=== PATIENT | female | born 1950 | race Caucasian/White ===

== ENCOUNTER 2018-08-30 14:19 | Emergency (ER) | payer MEDICARE, MEDICAID ==
[~2018-08-30] VITALS: Ht 170.2 cm; Wt 76.4 kg
[~2018-08-30 14:19] MED LIST: AMLO-147; ATOR80TA18; BACL10TA; CLON-379; CRAN307T; DOCU-144; ESOM40SU; HPN; HYDR-1666; KEP100S; LEVE750T70; MULT1CAP57; TRAM50TA; WARF1TAB; [UNRECOGNIZED DRUG - CODE]
[2018-08-30 14:29] VITALS: Ht 170.2 cm; Wt 76.4 kg
[2018-08-30] MEDS ORDERED: morphine 4 MG/ML VIAL IV STA (14:30)
[2018-08-30] MEDS ORDERED: ONDANSETRON 4 MG INJ IV STA (14:30)
[2018-08-30] MEDS ORDERED: SOD CHLORIDE 0.9% 1,000 ML IV STA (14:30)
[2018-08-30] MEDS ORDERED: PHEN-538 PO (16:32)
[2018-08-30] MEDS ORDERED: NITR-58 PO (16:32)
--- NOTE | 2018-08-30 16:57 | ERD ---
ER Documentation Chief Complaint Chief Complaint Diffuse central AP, N/V/D X 2 days, Hx CVA w/ L-sided weakness X 10 yrs HPI Patient is a 68-year-old female with atrial fibrillation, stroke, hypertension who presents with abdominal pain. She has had abdominal pain for the past 2 weeks. She has diarrhea as well. She the diarrhea started 2 days ago. She has mild nausea but no vomiting. She was brought in by ambulance. Upon review of old medical records this is the patient's third visit since 2008. ROS All systems reviewed and are negative except as per history of present illness. Medications Home Meds Active Scripts Phenazopyridine Hcl* (Pyridium*) 200 Mg Tab, 200 MG PO TID PRN for URINARY PAIN, #6 TAB Prov:UMBERTO LOPEZ MD 08/30/18 Nitrofurantoin Monohyd Macrocr* (Macrobid*) 100 Mg Capsr, 100 MG PO BID for 7 Days, CAP Prov:UMBERTO LOPEZ MD 08/30/18 Reported Medications Clonidine Hcl* (Clonidine Hcl*) 0.1 Mg Tab 09/13/10 Tramadol Hcl* (Ultram*) 50 Mg Tablet 09/13/10 Esomeprazole Mag Trihydrate (Nexium Packet) 40 Mg/Packet Suspdr.pkt 09/13/10 Multivitamins W-Minerals (Multivitamin) 1 Cap Capsule 09/13/10 Levetiracetam* (Keppra*) 750 Mg Tablet 09/13/10 Docusate Sodium* (Colace*) 100 Mg Capsule 09/13/10 Atorvastatin (Lipitor) 80 Mg Tablet 09/13/10 Hydrocodone Bit/Acetaminophen (Vicodin 5/500 Tablet) 1 Tab Tablet 12/12/09 Warfarin Sodium* (Coumadin*) 1 Mg Tablet 12/12/09 Tramadol Hcl* (Ultram*) 50 Mg Tablet 12/12/09 Multivitamins W-Minerals (Multivitamin) 1 Cap Capsule 12/12/09 Docusate Sodium* (Colace*) 100 Mg Capsule 12/12/09 Atorvastatin (Lipitor) 80 Mg Tablet 12/12/09 Amlodipine Besylate* (Amlodipine Besylate*) 10 Mg Tablet 12/12/09 Baclofen* (Baclofen*) 10 Mg Tablet 12/12/09 Cranberry Fruit (Cranberry) 307 Mg Tablet 12/12/09 Levetiracetam* (Keppra* (Ped)) 100 Mg/Ml Liq 12/12/09 Pollen Extracts (Prostat) 1 Tab Tablet 12/12/09 [Hpn] No Conflict Check 12/12/09 Allergies Allergies: Coded Allergies: Penicillins (Verified Allergy, Mild, 09/13/10) Sulfa (Sulfonamides) (Verified Allergy, Mild, 09/13/10) Uncoded Allergies: [id number] (SULFA (SULFONAMIDE ANTIBIOTICS)) (Allergy, Mild, 09/13/10) PMhx/Soc History of Surgery: No Hx Neurological Disorder: Yes (STROKE.) Hx Respiratory Disorders: No Hx Cardiac Disorders: Yes (ATRIAL FIB.) Hx Psychiatric Problems: No Hx Miscellaneous Medical Probl: No Hx Alcohol Use: No Hx Substance Use: No Hx Tobacco Use: No (NO LONGER SMOKING) Smoking Status: Former smoker FmHx Family History: No diabetes Physical Exam Vitals Vital Signs Date Temp Pulse Resp B/P (MAP) Pulse Ox O2 O2 Flow FiO2 Time Delivery Rate 08/30/18 97.7 66 18 194/85 96 14:29 (121) Physical Exam Const: No acute distress Head: Atraumatic Eyes: Normal Conjunctiva ENT: Normal External Ears, Nose and Mouth. Neck: Full range of motion. No meningismus. Resp: Clear to auscultation bilaterally Cardio: Regular rate and rhythm, no murmurs Abd: Soft, lower abdominal pain over the bladder without rebound or guarding Skin: No petechiae or rashes Back: No midline or flank tenderness Ext: No cyanosis, or edema Neur: Awake and alert Psych: Normal Mood and Affect Result Diagram: 08/30/18 1455 08/30/18 1455 Results 24 hrs Laboratory Tests Test 08/30/18 14:55 White Blood Count 5.3 10^3/ul Red Blood Count 4.17 10^6/ul Hemoglobin 12.9 g/dl Hematocrit 40.0 % Mean Corpuscular Volume 95.9 fl Mean Corpuscular Hemoglobin 30.9 pg Mean Corpuscular Hemoglobin Concent 32.3 g/dl Red Cell Distribution Width 15.9 % Platelet Count 274 10^3/UL Mean Platelet Volume 11.9 fl Immature Granulocytes % 0.200 % Neutrophils % 55.3 % Lymphocytes % 26.8 % Monocytes % 14.8 % Eosinophils % 2.1 % Basophils % 0.8 % Nucleated Red Blood Cells % 0.0 /100WBC Immature Granulocytes # 0.010 10^3/ul Neutrophils # 2.9 10^3/ul Lymphocytes # 1.4 10^3/ul Monocytes # 0.8 10^3/ul Eosinophils # 0.1 10^3/ul Basophils # 0.0 10^3/ul Nucleated Red Blood Cells # 0.0 10^3/ul Urine Color STRAW Urine Clarity CLEAR Urine pH 5 Urine Specific [place] 1.010 Urine Ketones NEGATIVE mg/dL Urine Nitrite NEGATIVE mg/dL Urine Bilirubin NEGATIVE mg/dL Urine Urobilinogen 0.2 E.U./dL mg/dL Urine Leukocyte Esterase NEGATIVE Maico/ul Urine Microscopic RBC 1 /HPF Urine Microscopic WBC 21 /HPF Urine Bacteria MANY /HPF Urine Hemoglobin NEGATIVE mg/dL Urine Glucose NEGATIVE mg/dL Urine Total Protein NEGATIVE mg/dl Sodium Level 144 mmol/L Potassium Level 3.5 mmol/L Chloride Level 104 mmol/L Carbon Dioxide Level 32 mmol/L Anion Gap 8 Blood Urea Nitrogen 15 mg/dl Creatinine 0.80 mg/dl Est Glomerular Filtrat Rate mL/min > 60 mL/min Glucose Level 78 mg/dl Calcium Level 9.8 mg/dl Total Bilirubin 0.5 mg/dl Direct Bilirubin 0.00 mg/dl Indirect Bilirubin 0.5 mg/dl Aspartate Amino Transf (AST/SGOT) 31 IU/L Alanine Aminotransferase (ALT/SGPT) 16 IU/L Alkaline Phosphatase 72 IU/L Total Protein 8.4 g/dl Albumin 4.2 g/dl Globulin 4.20 g/dl Albumin/Globulin Ratio 1.00 Lipase 86 U/L Current Medications Medications Dose Sig/[place] Start Time Status Last (Trade) Ordered Route PRN Stop Time Admin Dose Reason Admin Sodium 1,000 ml @ Q1H STAT 08/30/18 DC 08/30/18 Chloride 1,000 mls/hr IV 14:30 08/30/18 14:46 15:29 Morphine 4 mg ONCE STAT 08/30/18 DC Sulfate IV 14:30 08/30/18 (morphine) 14:32 Ondansetron 4 mg ONCE STAT 08/30/18 DC HCl (Zofran IV 14:30 08/30/18 Inj) 14:32 Procedures/MDM CT abdomen and pelvis negative for surgical process per radiology. Patient is a 68-year-old female presents with abdominal pain. CT scan shows no sign of surgical process. Urinalysis shows infection. The patient is otherwise well-appearing and I doubt sepsis. I believe outpatient management is appropriate at this time but the patient will need close follow-up with her primary doctor within 24-48 hours. The patient will be treated with Pyridium and Macrobid. She can return for any worsening symptoms. Patient understands plan and is okay for discharge back to her care home facility. Departure Diagnosis: Primary Impression: Cystitis Additional Impression: Abdominal pain Abdominal location: lower abdomen, unspecified Qualified Codes: R10.30 - Lower abdominal pain, unspecified Condition: Fair Patient Instructions: Abdominal Pain, Cystitis Additional Instructions: Call your primary care doctor TOMORROW for an appointment during the next 1-2 days.See the doctor sooner or return here if your condition worsens before your appointment time. UMBERTO LOPEZ MD Aug 30, 2018 16:57
[2018-08-30] MEDS ORDERED: CLON-379 PO (18:15)
[2018-08-30] MEDS ORDERED: KETO120S3 TOP (18:16)
[2018-08-30] MEDS ORDERED: ACET-141 PO (18:17)
[2018-08-30] MEDS ORDERED: MECL-77 PO (18:17)
[2018-08-30] MEDS ORDERED: BISA10SU75 PR (18:18)
[2018-08-30] MEDS ORDERED: FLEETPED PR (18:19)
[2018-08-30] MEDS ORDERED: DEXT1DRO6 OP (18:20)
[2018-08-30] MEDS ORDERED: FURO20TA3 PO (18:21)
[2018-08-30] MEDS ORDERED: GABA300C16 PO (18:21)
[2018-08-30] MEDS ORDERED: ATOR-2 PO (18:22)
[2018-08-30] MEDS ORDERED: OXYB5TAB7 PO (18:22)
[2018-08-30] MEDS ORDERED: METO-429 PO (18:23)
[2018-08-30] MEDS ORDERED: HYDR100T25 PO (18:23)
[2018-08-30] MEDS ORDERED: WARF5TAB PO (18:25)
[2018-08-30] MEDS ORDERED: WARF2.5T PO (18:25)
[2018-08-30] MEDS ORDERED: LISI40TA3 PO (18:27)
[2018-08-30] MEDS ORDERED: LEVE750T8 PO (18:27)
[2018-08-30] MEDS ORDERED: DOCU-144 PO (18:28)
[2018-08-30] MEDS ORDERED: OMEP20CA16 PO (18:28)
[2018-08-30] MEDS ORDERED: AMLO2.5T78 PO (18:28)
[2018-08-30] MEDS ORDERED: MULT-105 PO (18:29)
[2018-08-30] MEDS ORDERED: MAGN400T28 PO (18:29)
[2018-08-30] MEDS ORDERED: hydrALAzine 20 MG INJ IV ONE (19:00)
[2018-08-30 20:19] VITALS: BP 175/80; PULSE 64; RESP 18
== END 2018-08-30 21:18 | disposition home or self-care (01) ==
LOC: E/R 14:19
DX: N30.90 Cystitis, unspecified without hematuria (principal); I10 Essential (primary) hypertension; Z86.73 Personal history of transient ischemic attack (TIA), and cerebral infarction without residual deficits; Z87.891 Personal history of nicotine dependence
CPT/HCPCS: 36415; 74176; 80053; 81003; 83690; 85025; 96374; 99285; J0360; J7030